=== PATIENT | female | born 2000 | race Caucasian/White ===

== ENCOUNTER 2021-01-18 02:01 | Emergency (ER) | payer MEDICAID ==
[~2021-01-18] VITALS: Ht 149.9 cm; Wt 45.0 kg
[2021-01-18 02:40] LABS: CLARITY URINE CLEAR (CLEAR); COLOR URINE YELLOW (YELLOW); KETONES URINE NEGATIVE (NEGATIVE); LEUKOCYTE ESTERASE URINE TRACE (NEGATIVE); NITRITE URINE NEGATIVE (NEGATIVE); OCCULT BLOOD URINE 3+ (NEGATIVE); PROTEIN URINE TRACE (NEGATIVE); SPECIFIC GRAVITY URINE 1.019 (1.005-1.030); UROBILINOGEN URINE 0.2 E.U./dL (0.2-1.0)
[2021-01-18] MEDS ORDERED: KETOROLAC 30MG/ML VIAL IV STA (05:12)
[2021-01-18] MEDS ORDERED: SODIUM CHLORIDE 0.9% 1,000 ML IV ONE (05:15)
[2021-01-18 05:28] LABS: BASOPHILS % 0.4 % (0.0-2.0); HEMATOCRIT. 27.1 % (36.0-48.0); HEMOGLOBIN. 8.4 g/dL (12.0-16.0); LYMPHOCYTES % 7.7 % (20.0-50.0); MEAN CORPUSCULAR HEMOGLOBIN 19.6 pg (28.0-32.0); MEAN CORPUSCULAR VOLUME 63.5 fL (81.0-99.0); MEAN PLATELET VOLUME 7.1 fl (7.4-10.4); NEUTROPHILS % 86.9 % (40.0-76.0); PLATELET 415 x1000/uL (130-400); RED BLOOD CELL COUNT 4.26 mill/uL (4.2-5.4); RED CELL DISTRIBUTION WIDTH 17.5 % (11.6-14.6)
[2021-01-18 05:32] LABS: CHLORIDE 107 mEq/L (98-107)
[2021-01-18 05:45] LABS: HCG SCREEN POSITIVE
[2021-01-18 09:53] LABS: PLATELET ESTIMATE SLIGHTLY INCREASED
[2021-01-18 11:06] VITALS: BP 120/74
[2021-01-18] MEDS ORDERED: CEFTRIAXONE 1 G PREMIX 50 ML IV ONE (15:00)
== END 2021-01-18 11:19 | disposition admitted as inpatient to this hospital (09) ==
LOC: ER 02:01 → CANRESERV 10:36 → ENRESERV 10:36 → ER 11:19 → CANBEDREQ 16:32
DX: O00.90 Unspecified ectopic pregnancy without intrauterine pregnancy (principal); N39.0 Urinary tract infection, site not specified; R10.31 Right lower quadrant pain
CPT/HCPCS: 36415; 76801; 76817; 80053; 81003; 81025; 84702; 84703; 85025; 86850; 86900; 86901; 96361; 96374; 99284; J1885; J7030